=== PATIENT | female | born 1990 | race Two or more races ===

== ENCOUNTER → 2018-11-11 | Outpatient (CLI) | payer OTHER ==
[2018-11-11 16:58] LABS: MEAN CORPUSCULAR HEMOGLOBIN 29.2 pg (27.0-34.8); MEAN CORPUSCULAR HGB CONC 33.6 g/dL (32.4-35.8); MEAN CORPUSCULAR VOLUME 86.8 fL (80-100); MEAN PLATELET VOLUME 7.6 fL (7.4-10.4); PLATELET COUNT 410 x10^3/uL (130-400); RED CELL DISTRIBUTION WIDTH 15.8 % (9.6-15.2)
[2018-11-11 17:07] LABS: ALANINE AMINOTRANSFERASE 23 U/L (12-78); ANION GAP 6 mmol/L (5-15); CALCIUM 9.5 mg/dL (8.5-10.1); CHLORIDE 106 mmol/L (98-107)
[2018-11-11 17:18] LABS: ALKALINE PHOSPHATASE 91 U/L (45-117); BILIRUBIN,TOTAL 0.4 mg/dL (0.2-1.0); CREATININE 0.89 mg/dL (0.55-1.02); TOTAL PROTEIN 8.3 g/dL (6.4-8.2)
== END | disposition home or self-care (01) ==
LOC: LAB 16:39
PROVIDERS: ATTEND Obstetrics & Gynecology
DX: Z13.0 Encounter for screening for diseases of the blood and blood-forming organs and certain disorders involving the immune mechanism (principal); Z13.29 Encounter for screening for other suspected endocrine disorder; Z13.220 Encounter for screening for lipoid disorders; N92.1 Excessive and frequent menstruation with irregular cycle
CPT/HCPCS: 36415; 80053; 84144; 84146; 84402; 84403; 84443; 85027

== ENCOUNTER → 2020-03-26 | Outpatient (CLI) | payer OTHER ==
[2020-03-26 09:33] LABS: BASOPHILS # (AUTO) 0.07 x10^3/uL (0-0.1); BASOPHILS % (AUTO) 1 % (0-1); EOSINOPHILS # (AUTO) 0.54 x10^3/uL (0-0.4); EOSINOPHILS % (AUTO) 6 % (1-7); LYMPHOCYTES # (AUTO) 2.45 x10^3/uL (1-3.4); LYMPHOCYTES % (AUTO) 25 % (22-44); MD NO; MEAN CORPUSCULAR HEMOGLOBIN 26.8 pg (27.0-34.8); MEAN CORPUSCULAR VOLUME 83.6 fL (80-100); MEAN PLATELET VOLUME 7.3 fL (7.4-10.4); MONOCYTES # (AUTO) 0.68 x10^3/uL (0.2-0.8); MONOCYTES % (AUTO) 7 % (2-9); NEUTROPHILS # (AUTO) 6.18 x10^3/uL (1.8-6.8); NEUTROPHILS % (AUTO) 62 % (42-75); PLATELET COUNT 409 x10^3/uL (130-400); RED BLOOD COUNT 4.89 x10^6/uL (3.82-5.3); RED CELL DISTRIBUTION WIDTH 16.9 % (9.6-15.2)
[2020-03-26 09:40] LABS: ALANINE AMINOTRANSFERASE 21 U/L (12-78); ALBUMIN 3.5 g/dL (3.4-5.0); ANION GAP 4 mmol/L (5-15); CALCIUM 8.9 mg/dL (8.5-10.1); CHLORIDE 111 mmol/L (98-107); CHOLESTEROL, TOTAL 141 mg/dL (140-239)
[2020-03-26 09:50] LABS: ALKALINE PHOSPHATASE 64 U/L (45-117); BILIRUBIN,TOTAL 0.4 mg/dL (0.2-1.0); CHOL/HDL RATIO 6.1; HDL CHOL % 16 % (28-40); HDL CHOLESTEROL (DIRECT) 23 mg/dL (40-60); LDL CHOLESTEROL,CALCULATED 91 mg/dL (54-169); TOTAL PROTEIN 7.6 g/dL (6.4-8.2); TRIGLYCERIDES 137 mg/dL (50-200); VLDL CHOLESTEROL 27 mg/dL (0-25)
== END | disposition home or self-care (01) ==
LOC: LAB 09:15
PROVIDERS: ATTEND Nurse Practitioner Family
DX: Z13.31 Encounter for screening for depression (principal); Z00.00 Encounter for general adult medical examination without abnormal findings; R63.5 Abnormal weight gain
CPT/HCPCS: 36415; 80053; 80061; 84443; 85025

== ENCOUNTER → 2020-07-27 | Outpatient (CLI) | payer OTHER | END | disposition home or self-care (01) | LOC: RAD 16:28 | PROVIDERS: ATTEND Physician Assistant Surgical | DX: S83.412A Sprain of medial collateral ligament of left knee, initial encounter (principal); M71.22 Synovial cyst of popliteal space [Baker], left knee; M67.462 Ganglion, left knee; X58.XXXA Exposure to other specified factors, initial encounter; Y93.89 Activity, other specified; Y92.89 Other specified places as the place of occurrence of the external cause; Y99.8 Other external cause status ==